=== PATIENT | female | born 1950 | race Caucasian/White ===

== ENCOUNTER 2016-11-06 08:49 | Inpatient (IN) | payer MEDICARE, OTHER ==
[2016-11-06] MEDS ORDERED: traMADol HCL 50 MG TABLET PO ONE (09:22)
--- NOTE | 2016-11-06 09:27 | ERNOTE ---
Back Pain ER HPI Date of Service: 11/06/16 Presenting Symptoms: injury/pain to back Time Seen by Provider: 11/06/16 09:20 Source: patient, EMS, EMS notes reviewed Exam Limitations: no limitations Immunizations: IMMUNIZATION HX Immunizations Up to Date Yes History of Influenza Vaccine No Hx Pneumococcal Vaccination No Allergies/Adverse Reactions: Allergies No Known Allergies Allergy (Verified 11/06/16 09:18) Home Medications: HOME MEDICATIONS Albuterol Sulfate [Albuterol Sulfate 2.5 MG/0.5ML] 1 vial IH Q4H PRN 11/25/15 [ Last Taken Unknown] Metoprolol Tartrate [Lopressor] 50 mg PO BID 11/25/15 [Last Taken Unknown] Multivitamins [Multivitamin Marcelina] 1 cap PO DAILY 11/25/15 [Last Taken Unknown] amLODIPine BESYLATE [Norvasc] 5 mg PO DAILY 11/25/15 [Last Taken Unknown] levETIRAcetam [Keppra] 500 mg PO BID 11/25/15 [Last Taken Unknown] Acetaminophen [Tylenol] 650 mg PO Q8H PRN #60 tablet 12/01/15 [Last Taken Unknown] Amox Tr/Potassium Clavulanate [Augmentin 500-125 Tablet] 500 mg PO Q12H #14 tab 12/01/15 [Last Taken Unknown] Cholecalciferol [Vitamin D] 5,000 unit PO DAILY@1200 #100 tablet 12/01/15 [Last Taken Unknown] Furosemide [Lasix] 40 mg PO MOWEFR #30 tablet 12/01/15 [Last Taken Unknown] Gabapentin [Neurontin] 300 mg PO HS #30 capsule 12/01/15 [Last Taken Unknown] Insulin Glargine,Hum.rec.anlog [Lantus] 40 units SC HS #1 vial 12/01/15 [Last Taken Unknown] Insulin Glargine,Hum.rec.anlog [Lantus] 45 units SC DAILY #1 vial 12/01/15 [ Last Taken Unknown] Insulin Lispro [Humalog] 15 units SC ACINS #1 vial 12/01/15 [Last Taken Unknown] Lactobacillus Acidophilus [Bacid] 2 cap PO TID #1 btl 12/01/15 [Last Taken Unknown] Psyllium Husk (with Sugar) [Metamucil] 1 each PO BID #1 bottle 12/01/15 [Last Taken Unknown] Sennosides [Senokot] 17.2 mg PO DAILY #100 tab 12/01/15 [Last Taken Unknown] lamoTRIgine [Lamictal] 50 mg PO DAILY #30 tablet 12/01/15 [Last Taken Unknown] Date (Duration): 10/30/16 Timing: Reports: getting worse Quality/Severity: Reports: moderate Location of pain: Reports: lower back Activities at Onset: Reports: other - sleeping on floor with grand-daughter Recent Injury?: Reports: possibly Modifying Factors - (Improves): Reports: other - tylenol helped a bit Associated Symptoms: Denies: fever/chills, sweating, nausea/vomiting, problems urinating Prior Treament: Denies: treated by physician, recently hospitalized, currently on antibiotics Review of Systems - Review of Systems Constitutional: Absent: no symptoms reported, fever, chills, diaphoresis Respiratory: Present: no symptoms reported Cardiology: Present: no symptoms reported Genitourinary: Present: no symptoms reported. Absent: frequency, pain, dysuria Musculoskeletal: Present: back pain Skin: Present: other - chronic oozing from anterior abd scars, nothing new. Absent: rash Psych: Absent: no symptoms reported - Patient's Past Medical History Patient History - Medical: Anemia, Bipolar, Diabetes Type 2 Insulin Dependent, Seizures, Other Patient History - Cardiac/Respiratory: No pertinent hx Patient History - Cancer: No Hx of Cancer Patient History - Surgical Procedures: Amputation, Cataracts, Colonoscopy, EGD, Hysterectomy, Tubal Ligation, Other LMP (females 10-50): Menopausal - Family History Mother Family History - Medical: , Diabetes Type 2 Insulin Dependent Family History - Cardiac/Respiratory: CVA/Stroke Family History - Cancer: Other - Cancer Sister Family History - Medical: History Unknown Family History - Cancer: Breast Children Family History - Medical: Diabetes Type 2 Father Family History - Medical: Family History - Cardiac/Respiratory: Coronary Heart Disease Family History - Cancer: Breast - Social History Living Situations: home Smoking Status: Never smoker Alcohol Use: none Drug Use: none Physical Exam - Physical Exam General Appearance: Present: wd/wn, alert, moderate distress Eye Exam: Normal inspection: bilateral, PERRL: bilateral Ears, Nose, Throat: Present: normal ENT inspection Neck: Present: nontender, supple Respiratory: Present: normal breath sounds, lungs clear Cardiovascular/Chest: Present: regular rate, rhythm, no murmur Back Exam: Present: decreased range of motion. Absent: CVA tenderness (R), CVA tenderness (L) Extremity Exam: Present: normal inspection, no edema Neurological Exam: Present: alert, oriented, normal mood/affect Skin Exam: Present: pallor, skin rash - chronically oozing lesions abd scars. Absent: cyanosis ED Progress - Results and Orders Patient's Lab Results:: I have reviewed the patient's lab results. - Vital Signs Patient's Vital Signs:: I have reviewed the patient's vital signs. Vital Signs: Vital Signs 11/06/16 09:12 Temperature 36.3 C L Pulse Rate 79 Respiratory 16 Rate Blood Pressure 144/60 O2 Sat by Pulse 97 Oximetry - Progress/Reassessment Chief Complaint: Back Pain Plan - Plan Plan: Admit to observation for transfusions. Discussed with Dr. IBARRA Departure Clinical Impression: Anemia, Stage III chronic kidney disease, Low back pain - Departure Disposition: [facility] Condition: Good
[2016-11-06 09:41] LABS: Mean Cell Volume 70.8 fl (78-100); Mean Corpuscular Hemoglobin 20.1 pg (27-31); Mean Corpuscular Hgb Conc 28.3 g/dl (32-36); Mean Platelet Volume 10.3 fl (6.0-9.5); Neutrophil % 82.4 % (42-75.0); Platelet Count 344 K/mm3 (150-450); Red Blood Count 3.39 M/mm3 (4.2-5.4); Red Cell Distribution Width 17.4 % (11.5-14.0); White Blood Count 12.2 K/mm3 (4.0-10.5)
[2016-11-06] MEDS ORDERED: traMADol HCL 50 MG TABLET ONE (09:44)
[2016-11-06 09:51] LABS: Hemoglobin 6.8 gm/dL (12.5-16.0)
[2016-11-06 09:55] LABS: Albumin * 2.8 gm/dl (3.4-5.0); Anion Gap 12.2 mmol/L (6.8-13.8); BUN/Creatinine Ratio 17.7 (9.0-21.6); Bilirubin, Total 0.2 mg/dL (0.0-1.1); Ca. Corrected For Albumin 9.9 mg/dL (8.4-10.2); Calcium * 9.3 mg/dL (7.9-10.9); Carbon Dioxide 25.6 mmol/L (24-32.6); Potassium 4.8 mmol/L (3.4-4.6); Total Protein 7.7 gm/dL (6.2-8.2)
[2016-11-06 11:18] LABS: Urine Appearance Clear; Urine Color Yellow
[2016-11-06 11:19] LABS: Urine Bacteria None Seen; Urine Bilirubin Negative (NEGATIVE); Urine Blood Negative /ul (NEGATIVE); Urine Ketone Negative (NEGATIVE); Urine Nitrite Negative (NEGATIVE); Urine Protein 30 mg/dL (NEGATIVE); Urine RBC None Seen /hpf (0-5); Urine Specific Gravity 1.015 SP.GR. (1.005-1.010); Urine Urobilinogen Normal (NORMAL); Urine WBC None Seen /hpf (0-5)
[2016-11-06 11:28] LABS: Iron 12 mcg/dL (35-120); Transferrin Sat. (% Sat.) 4 % (15-55)
[2016-11-06] MEDS ORDERED: POLYETHYLENE GLYCOL 17 GM PO PRN (13:19)
[2016-11-06] MEDS ORDERED: ACETAMINOPHEN 325 MG TABLET PO PRN (13:19)
[2016-11-06] MEDS ORDERED: ALBUTEROL SULFATE 2.5 MG/0.5 ML VIAL.NEB IH PRN (13:19)
[2016-11-06] MEDS ORDERED: traMADol HCL 50 MG TABLET PO PRN (13:22)
[2016-11-06] MEDS ORDERED: POLYETHYLENE GLYCOL 3350 119 GM BTL PO PRN (13:34)
[2016-11-06] MEDS: INSULIN LISPRO 100 UNITS/ML VIAL SC SCH (16:47)
[2016-11-06] MEDS: FERROUS SULFATE 325 MG TABLET PO SCH (16:47)
[2016-11-06] MEDS: METOPROLOL TARTRATE 50 MG TABLET PO SCH (16:47)
[2016-11-06] MEDS: SENNOSIDES/DOCUSATE SODIUM 1 TAB TABLET PO SCH (20:47)
[2016-11-06] MEDS: lamoTRIgine 100 MG TABLET PO SCH (20:47)
[2016-11-06] MEDS: INSULIN GLARGINE,HUM.REC.ANLOG 100 UNITS/ML VIAL SC SCH (20:49)
[2016-11-06] MEDS: traMADol HCL 50 MG TABLET PO PRN (20:55)
--- NOTE | 2016-11-06 21:31 | HP ---
<Catrachita Gonzalez - Last Filed: 11/07/16 00:25> Chief Complaint - Chief Complaint Date of Service: 11/06/16 Time of Service: 21:21 Chief Complaint: "Back Pain". Source of HPI- pt; unreliable, ER provider note, pt's EMR. History of Present Illness: Ms. Rodriguez is a 66-yr-old [facility] pt of Dr. Cuadra with a PMH of: Anemia, DM II, Epilepsy & Osteomylitis of LT foot. Pt does not seem to be a precise historian. She tells me the reason she sought medical care through the ER was because of middle back pain that has gone on for 1 week. She reports no other unusual symptoms. She denies fevers & chills. She also denies n/v, diarrhea, & SOB. She reports occasional coughing. Pt states that she was unable to reach her daughter to bring her to the hospital, and so she opted to call the EMS. Pt says that she has not been able to fill her prescription medications for 3 months as she was dropped by Medicaid insurance when she applied for Medicare. Her medical work up at the ED showed that her hemoglobin was 6.8. Pt denied noting any bloody or dark stools, hematemesis. Her hemogram also showed elevated WBC with a left shift. UA was negative for infection. Pt will be admitted under observation status for blood transfusion. - Patient's Past Medical History Patient History - Medical: Anemia, Bipolar, Diabetes Type 2 Insulin Dependent, Seizures, Other Patient History - Cardiac/Respiratory: No pertinent hx Patient History - Cancer: No Hx of Cancer Patient History - Surgical Procedures: Amputation, Cataracts, Colonoscopy, EGD, Hysterectomy, Tubal Ligation, Other LMP (females 10-50): Menopausal - Family History Mother Family History - Medical: , Diabetes Type 2 Insulin Dependent Family History - Cardiac/Respiratory: CVA/Stroke Family History - Cancer: Other - Cancer Sister Family History - Medical: History Unknown Family History - Cancer: Breast Children Family History - Medical: Diabetes Type 2 Father Family History - Medical: Family History - Cardiac/Respiratory: Coronary Heart Disease Family History - Cancer: Breast - Social History Living Situations: alone Smoking Status: Never smoker Have you smoked in the past 12 months: No Alcohol Use: none Drug Use: none - Immunizations Immunizations Up to Date: No Hx Pneumococcal Vaccination: No History of Influenza Vaccine: No Review Of Systems (GEN) - Review of Systems Generalized/Overall Review: Present: Malaise. Absent: Weakness, Chills, Fever EENTM: Absent: Blurred Vision, Double Vision, Throat Pain Respiratory: Present: Cough. Absent: Shortness of Breath Cardiac: Present: Edema. Absent: Chest Pain, Palpitations, Syncope Abdominal: Absent: Nausea, Vomiting, Hematemesis, Bright blood from rectum Genitourinary: Absent: Burning, Itching, Urgency, Frequency Musculoskeletal: Absent: Joint Pain, Back Pain, Joint Swelling Neurological: Absent: Headache, Anxiety, Tremors Skin: Present: Dryness, Other - Wound on abd. Endocrine: Present: No Symptoms Reported Misc: All systems neg except as marked Allergies/Adverse Reactions: Allergies Allergy/AdvReac Type Severity Reaction Status Date / Time No Known Allergies Allergy Verified 11/06/16 13:09 Home Medications: HOME MEDICATIONS Acetaminophen [Tylenol] 650 mg PO Q6H PRN 11/06/16 [Last Taken Unknown] Albuterol Sulfate [Albuterol Sulfate 2.5 MG/0.5ML] 1 vial IH Q4H PRN 11/06/16 [ Last Taken Unknown] Cetirizine HCl [Zyrtec] 10 mg PO HS 11/06/16 [Last Taken Unknown] Cholecalciferol [Vitamin D] 5,000 unit PO DAILY 11/06/16 [Last Taken Unknown] Gabapentin [Neurontin] 300 mg PO HS 11/06/16 [Last Taken Unknown] Insulin Glargine,Hum.rec.anlog [Lantus] 40 units SC 11/06/16 [Last Taken Unknown] Insulin Glargine,Hum.rec.anlog [Lantus] 45 units SC QA 11/06/16 [Last Taken Unknown] Insulin Lispro [Humalog] 15 units SC TIDWM 11/06/16 [Last Taken Unknown] Levetiracetam [Keppra] 500 mg PO BID 11/06/16 [Last Taken Unknown] Metoprolol Tartrate [Lopressor] 50 mg PO BIDWM 11/06/16 [Last Taken Unknown] Multivitamin [One Daily Essential] 1 each PO DAILY 11/06/16 [Last Taken Unknown] Polyethylene Glycol 3350 [Miralax] 17 gm PO DAILY PRN 11/06/16 [Last Taken Unknown] Sennosides/Docusate Sodium [Senna-Docusate Sodium Tablet] 1 each PO BID [Last Taken Unknown] Silver Sulfadiazine [Silvadene] 1 appl TP BID 11/06/16 [Last Taken Unknown] amLODIPine BESYLATE [Norvasc] 5 mg PO DAILY 11/06/16 [Last Taken Unknown] lamoTRIgine [Lamictal] 150 mg PO DAILY 11/06/16 [Last Taken Unknown] Exam - Exam Vital Signs: Vital Signs - Last Taken Temp 36.9 C 11/06/16 20:42 Pulse 68 11/06/16 20:42 Resp 16 11/06/16 20:42 BP 147/69 11/06/16 20:42 Pulse Ox 100 11/06/16 20:42 Constitutional: Present: Alert, Oriented x3, Cooperative, No distress ENT Exam: Present: normal ENT inspection, hearing grossly normal. Absent: nasal congestion, nasal drainage Eye Exam: bilateral eye: normal inspection, PERRL Neck: Present: full range of motion, supple, normal inspection Back Exam: Present: normal inspection, no CVA tenderness Respiratory: Present: lungs clear, no accessory muscle use, No wheezing Cardiovascular/Chest: Present: regular rate, rhythm, no murmur Abdomen: Present: Normal bowel sounds, soft, nontender /Rectal: Present: Exam deferred Extremity: Present: normal range of motion, non-tender, normal inspection. Absent: calf tenderness Skin Exam: Present: other - Non healing abdominal wounds with serous to serosanguinous drainage. Lymphatic: Present: no adenopathy Neurologic: Present: no motor/sensory deficits, alert, oriented x 3, dizzy/light -headedness Appearance: Present: appropriate appearance, appropriate insight, no memory impairment Eye contact: Present: cooperative, good eye contact, normal speech Thoughts: Present: normal thought pattern, no apparent hallucination Diagnostic Studies: Laboratory Results WBC 12.2 K/mm3 (4.0-10.5) H 11/06/16 09:26 RBC 3.39 M/mm3 (4.2-5.4) L 11/06/16 09:26 Hgb 6.8 gm/dL (12.5-16.0) L* D 11/06/16 09:26 Hct 24.0 % (37.0-47.0) L D 11/06/16 09:26 MCV 70.8 fl (78-100) L 11/06/16 09:26 MCH 20.1 pg (27-31) L 11/06/16 09:26 MCHC 28.3 g/dl (32-36) L 11/06/16 09:26 RDW 17.4 % (11.5-14.0) H 11/06/16 09:26 Plt Count 344 K/mm3 (150-450) 11/06/16 09:26 MPV 10.3 fl (6.0-9.5) H 11/06/16 09:26 Immature Gran % (Auto) 0.40 % (0.001-0.429) 11/06/16 09:26 Immature Gran # (Auto) 0.05 K/mm3 (0.000-0.0310) H 11/06/16 09:26 Neutrophils % 82.4 % (42-75.0) H 11/06/16 09:26 Lymphocytes % 9.8 % (20-51) L 11/06/16 09:26 Monocytes % 5.5 % (0.0-9) 11/06/16 09:26 Eosinophils % 1.8 % (0.0-3.0) 11/06/16 09:26 Basophils % 0.1 % (0.0-1.0) 11/06/16 09:26 Nucleated RBC % 0.0 k/mm3 (0-1) 11/06/16 09: Neutrophils # 10.0 K/mm3 (1.3-6.0) H 11/06/16 09:26 Lymphocytes # 1.2 k/mm3 (1.5-3.5) L 11/06/16 09:26 Monocytes # 0.7 k/mm3 (0.0-1.0) 11/06/16 09:26 Eosinophils # 0.2 k/mm3 (0.0-0.7) 11/06/16 09:26 Absolute Basophils 0.0 k/mm3 (0.0-0.1) 11/06/16 09:26 Sodium 135 mmol/L (132-142) 11/06/16 09:26 Plasma Sodium 137 mmol/L (130-142) 11/06/16 09:26 Potassium 4.8 mmol/L (3.4-4.6) H 11/06/16 09:26 Chloride 102 mmol/L (97-106) 11/06/16 09:26 Carbon Dioxide 25.6 mmol/L (24-32.6) 11/06/16 09:26 Anion Gap 12.2 mmol/L (6.8-13.8) 11/06/16 09:26 BUN 28 mg/dL (3-23) H 11/06/16 09:26 Creatinine 1.58 mg/dL (0.4-1.4) H 11/06/16 09:26 Est GFR (Non-Af Amer) 35 mL/min (60-130) L 11/06/16 09:26 BUN/Creatinine Ratio 17.7 (9.0-21.6) 11/06/16 09:26 Random Glucose 227 mg/dL (70-110) H 11/06/16 09:26 Mean Blood Glucose 247 mg/dL 11/06/16 09:26 Hemoglobin A1c 10.0 % (4.00-6.0) H 11/06/16 09:26 Calcium 9.3 mg/dL (7.9-10.9) 11/06/16 09:26 Calcium Adj for Albumin 9.9 mg/dL (8.4-10.2) 11/06/16 09:26 Iron 12 mcg/dL (35-120) L 11/06/16 09:50 TIBC 300 mcg/dL (260-445) 11/06/16 09:50 Transferrin % Sat 4 % (15-55) L 11/06/16 09:50 Ferritin 8 ng/mL (8-252) 11/06/16 09:50 Total Bilirubin 0.2 mg/dL (0.0-1.1) 11/06/16 09:26 AST 7 U/L (0-48) 11/06/16 09:26 ALT 10 U/L (19-67) L 11/06/16 09:26 Alkaline Phosphatase 131 U/L (50-170) 11/06/16 09:26 Total Protein 7.7 gm/dL (6.2-8.2) 11/06/16 09:26 Albumin 2.8 gm/dl (3.4-5.0) L 11/06/16 09:26 Urine Color Yellow 12/31/16 10:44 Urine Appearance Clear 11/06/16 10:44 Urine pH 6.0 pH (5.0-7.0) 11/06/16 10:44 Ur Specific [place] 1.015 SP.GR. (1.005-1.010) 11/06/16 10:44 Urine Protein 30 mg/dL (NEGATIVE) H 11/06/16 10:44 Urine Glucose (UA) 250 mg/dL (NEGATIVE) H 11/06/16 10:44 Urine Clinitest 2+ (100mg/dl) mg/dL (NEGATIVE) H 11/06/16 10:44 Urine Ketones Negative mg/dL (NEGATIVE) 11/06/16 10:44 Urine Blood Negative /ul (NEGATIVE) 11/06/16 10:44 Urine Nitrate Negative (NEGATIVE) 11/06/16 10:44 Urine Bilirubin Negative mg/dl (NEGATIVE) 11/06/16 10:44 Prot Sulfosalicylic Acd 2+ mg/dL (0) H 11/06/16 10:44 Urine Urobilinogen Normal EU/dl (NORMAL) 11/06/16 10:44 Ur Leukocyte Esterase Negative /ul (NEGATIVE) 11/06/16 10:44 Urine RBC None seen /hpf (0-5) 11/06/16 10:44 Urine WBC None seen /hpf (0-5) 11/06/16 10:44 Ur Epithelial Cells None seen /hpf (0-5) 11/06/16 10:44 Urine Bacteria None seen (NONE) 11/06/16 10:44 Urine Culture Comments No culture indicated 11/06/16 10:44 Blood Type O Positive 11/06/16 09:50 Antibody Screen Negative 11/06/16 09:50 Crossmatch See Detail 11/06/16 09:50 Assessment/Plan - Assessment/Plan (1) Anemia Assessment: Her MCV is 70.8 which is consistent with microcytic anemia. She has had a long standing history of anemia related to iron deficiency. Will be transfused with 2 units of PRBC. Recheck hemogram in am. Problem: Acute QualifierTitle: Anemia type: iron deficiency (2) Elevated WBCs Assessment: UA was clear of infection. Since no CXR was obtained in ER, will obtain one tonight incase of pneumonia due to report of occasional coughing and mid back pain. She also has chronic wounds on her abdomen, and even though they are non - healing, they do not seem to have any signs of infection. Will consider source of infection to be the wounds in the event that CXR does not have acute findings. Check CBC in am. Problem: Acute (3) Wound of abdomen Assessment: She is unsure why she had abdominal surgery. it appears that she had total abdominal hysterectomy and BSO in the past and abdominal lesions. 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 Even though they are non- healing, they do not show signs of infection. Monitor CBC, if no improvement, consider abdominal CT to check for any abscess. Problem: Chronic (4) Stage III chronic kidney disease Problem: Chronic (5) Diabetes mellitus Problem: Chronic (6) Epilepsy Problem: Chronic (7) HTN (hypertension) Problem: Chronic QualifierTitle: Hypertension type: essential hypertension Qualified Code( s): I10 - Essential (primary) hypertension (8) Noncompliance with medication regimen Problem: Chronic <Pascual Ramey - Last Filed: 11/07/16 21:13> Immunizations: IMMUNIZATION HX Immunizations Up to Date No History of Influenza Vaccine No Hx Pneumococcal Vaccination No Exam - Exam Vital Signs: Vital Signs - Last Taken Temp 36.7 C 11/07/16 19:05 Pulse 61 11/07/16 19:05 Resp 16 11/07/16 19:05 BP 162/74 11/07/16 19:05 Pulse Ox 91 11/07/16 19:05 Diagnostic Studies: Abnormal Lab Results 11/07/16 11/07/16 11/07/16 Range/Units 04:40 04:40 04:40 RBC 3.66 L (4.2-5.4) M/mm3 Hgb 8.0 L (12.5-16.0) gm/dL Hct 27.0 L (37.0-47.0) % MCV 73.8 L (78-100) fl MCH 21.9 L (27-31) pg MCHC 29.6 L (32-36) g/dl RDW 18.5 H (11.5-14.0) % MPV 11.0 H (6.0-9.5) fl Monocytes % 9.4 H (0.0-9) % Eosinophils % 4.4 H (0.0-3.0) % BUN 30 H (3-23) mg/dL Creatinine 1.51 H (0.4-1.4) mg/dL Est GFR (Non-Af Amer) 37 L (60-130) mL/min Random Glucose 143 H D (70-110) mg/dL B-Natriuretic Peptide 2010 H (5-325) pg/mL Microbiology 11/06/16 13:55 - Final Nares MRSA Negative Laboratory Results WBC 7.3 K/mm3 (4.0-10.5) D 11/07/16 04:40 RBC 3.66 M/mm3 (4.2-5.4) L 11/07/16 04:40 Hgb 8.0 gm/dL (12.5-16.0) L 11/07/16 04:40 Hct 27.0 % (37.0-47.0) L 11/07/16 04:40 MCV 73.8 fl (78-100) L 11/07/16 04:40 MCH 21.9 pg (27-31) L 11/07/16 04:40 MCHC 29.6 g/dl (32-36) L 11/07/16 04:40 RDW 18.5 % (11.5-14.0) H 11/07/16 04:40 Plt Count 272 K/mm3 (150-450) 11/07/16 04:40 MPV 11.0 fl (6.0-9.5) H 11/07/16 04:40 Immature Gran % (Auto) 0.30 % (0.001-0.429) 11/07/16 04:40 Immature Gran # (Auto) 0.02 K/mm3 (0.000-0.0310) 11/07/16 04:40 Neutrophils % 60.4 % (42-75.0) 11/07/16 04:40 Lymphocytes % 25.2 % (20-51) 11/07/16 04:40 Monocytes % 9.4 % (0.0-9) H 11/07/16 04:40 Eosinophils % 4.4 % (0.0-3.0) H 11/07/16 04:40 Basophils % 0.3 % (0.0-1.0) 11/07/16 04:40 Nucleated RBC % 0.0 k/mm3 (0-1) 11/07/16 04:40 Neutrophils # 4.4 K/mm3 (1.3-6.0) 11/07/16 04:40 Lymphocytes # 1.8 k/mm3 (1.5-3.5) 11/07/16 04:40 Monocytes # 0.7 k/mm3 (0.0-1.0) 11/07/16 04:40 Eosinophils # 0.3 k/mm3 (0.0-0.7) 11/07/16 04:40 Absolute Basophils 0.0 k/mm3 (0.0-0.1) 11/07/16 04:40 Sodium 135 mmol/L (132-142) 11/07/16 04:40 Plasma Sodium 136 mmol/L (130-142) 11/07/16 04:40 Potassium 4.5 mmol/L (3.4-4.6) 11/07/16 04:40 Chloride 103 mmol/L (97-106) 11/07/16 04:40 Carbon Dioxide 24.8 mmol/L (24-32.6) 11/07/16 04:40 Anion Gap 11.7 mmol/L (6.8-13.8) 11/07/16 04:40 BUN 30 mg/dL (3-23) H 11/07/16 04:40 Creatinine 1.51 mg/dL (0.4-1.4) H 11/07/16 04:40 Est GFR (Non-Af Amer) 37 mL/min (60-130) L 11/07/16 04:40 BUN/Creatinine Ratio 19.9 (9.0-21.6) 11/07/16 04:40 Random Glucose 143 mg/dL (70-110) H D 11/07/16 04:40 Mean Blood Glucose 247 mg/dL 11/06/16 09:26 Hemoglobin A1c 10.0 % (4.00-6.0) H 11/06/16 09:26 Calcium 9.2 mg/dL (7.9-10.9) 11/07/16 04:40 Calcium Adj for Albumin 9.9 mg/dL (8.4-10.2) 11/06/16 09:26 Iron 12 mcg/dL (35-120) L 11/06/16 09:50 TIBC 300 mcg/dL (260-445) 11/06/16 09:50 Transferrin % Sat 4 % (15-55) L 11/06/16 09:50 Ferritin 8 ng/mL (8-252) 11/06/16 09:50 Total Bilirubin 0.2 mg/dL (0.0-1.1) 11/06/16 09:26 AST 7 U/L (0-48) 11/06/16 09:26 ALT 10 U/L (19-67) L 11/06/16 09:26 Alkaline Phosphatase 131 U/L (50-170) 11/06/16 09:26 Troponin I 0.020 ng/ml (0.00-0.10) 11/07/16 04:40 B-Natriuretic Peptide 2010 pg/mL (5-325) H 11/07/16 04:40 Total Protein 7.7 gm/dL (6.2-8.2) 11/06/16 09:26 Albumin 2.8 gm/dl (3.4-5.0) L 11/06/16 09:26 Urine Color Yellow 11/06/16 10:44 Urine Appearance Clear 11/06/16 10:44 Urine pH 6.0 pH (5.0-7.0) 11/06/16 10:44 Ur Specific [place] 1.015 SP.GR. (1.005-1.010) 11/06/16 10:44 Urine Protein 30 mg/dL (NEGATIVE) H 11/06/16 10:44 Urine Glucose (UA) 250 mg/dL (NEGATIVE) H 11/06/16 10:44 Urine Clinitest 2+ (100mg/dl) mg/dL (NEGATIVE) H 11/06/16 10:44 Urine Ketones Negative mg/dL (NEGATIVE) 11/06/16 10:44 Urine Blood Negative /ul (NEGATIVE) 11/06/16 10:44 Urine Nitrate Negative (NEGATIVE) 11/06/16 10:44 Urine Bilirubin Negative mg/dl (NEGATIVE) 11/06/16 10:44 Prot Sulfosalicylic Acd 2+ mg/dL (0) H 11/06/16 10:44 Urine Urobilinogen Normal EU/dl (NORMAL) 11/06/16 10:44 Ur Leukocyte Esterase Negative /ul (NEGATIVE) 11/06/16 10:44 Urine RBC None seen /hpf (0-5) 11/06/16 10:44 Urine WBC None seen /hpf (0-5) 11/06/16 10:44 Ur Epithelial Cells None seen /hpf (0-5) 11/06/16 10:44 Urine Bacteria None seen (NONE) 11/06/16 10:44 Urine Culture Comments No culture indicated 11/06/16 10:44 Group A Strep Rapid Negative (NEGATIVE) 11/07/16 00:22 Blood Type O Positive 11/06/16 09:50 Antibody Screen Negative 11/06/16 09:50 Crossmatch See Detail 11/06/16 09:50 Assessment/Plan - Narrative Narrative: We had planned to transfuse and then discharge this patient, until we discovered she had pneumonia. We will culture, and treat with IV antibiotics. Estimated stay of 3 days.
[2016-11-07] MEDS ORDERED: AZITHROMYCIN 250 MG TABLET PO SCH ×2 (00:30→23:59)
[2016-11-07] MEDS: NORMAL SALINE 1,000 ML IV PRN ×2 (00:32→17:37)
[2016-11-07 05:33] LABS: Mean Cell Volume 73.8 fl (78-100); Mean Corpuscular Hemoglobin 21.9 pg (27-31); Mean Corpuscular Hgb Conc 29.6 g/dl (32-36); Neutrophil # 4.4 K/mm3 (1.3-6.0); Neutrophil % 60.4 % (42-75.0); Platelet Count 272 K/mm3 (150-450); Red Blood Count 3.66 M/mm3 (4.2-5.4); Red Cell Distribution Width 18.5 % (11.5-14.0); White Blood Count 7.3 K/mm3 (4.0-10.5)
[2016-11-07 05:42] LABS: Anion Gap 11.7 mmol/L (6.8-13.8); BUN/Creatinine Ratio 19.9 (9.0-21.6); Calcium * 9.2 mg/dL (7.9-10.9); Carbon Dioxide 24.8 mmol/L (24-32.6); Estimated Creat Clear 31.6; Potassium 4.5 mmol/L (3.4-4.6)
[2016-11-07] MEDS ORDERED: AZITHROMYCIN 250 MG TABLET PO STA (06:35)
[2016-11-07 07:00] LABS: Troponin I 0.02 ng/ml (0.00-0.10)
[2016-11-07] MEDS ORDERED: AZITHROMYCIN 250 MG TABLET PO ONE (07:30)
[2016-11-07] MEDS ORDERED: NON-FORMULARY 1 DOSE DOSE (Multivitamin [One Daily Essential] 1 EACH) PO SCH (09:00)
[2016-11-07] MEDS: lamoTRIgine 100 MG TABLET PO SCH ×2 (09:10→20:13)
[2016-11-07] MEDS: INSULIN LISPRO 100 UNITS/ML VIAL SC SCH ×3 (09:10→16:22)
[2016-11-07] MEDS: FERROUS SULFATE 325 MG TABLET PO SCH ×3 (09:10→16:22)
[2016-11-07] MEDS: INSULIN GLARGINE,HUM.REC.ANLOG 100 UNITS/ML VIAL SC SCH ×2 (09:10→20:13)
[2016-11-07] MEDS: FOLIC ACID 1 MG TABLET PO SCH (09:10)
[2016-11-07] MEDS: METOPROLOL TARTRATE 50 MG TABLET PO SCH ×2 (09:11→16:22)
[2016-11-07] MEDS: CYANOCOBALAMIN 1,000 MCG TABLET PO SCH (09:11)
[2016-11-07] MEDS: CHOLECALCIFEROL 5,000 UNIT TABLET PO SCH (09:11)
[2016-11-07] MEDS: SENNOSIDES/DOCUSATE SODIUM 1 TAB TABLET PO SCH ×2 (09:11→20:13)
[2016-11-07] MEDS: MULTIVITAMINS 1 CAP CAPSULE PO SCH (09:11)
--- NOTE | 2016-11-07 21:18 | PN ---
Subjective - Date and Time Seen Date: 11/07/16 Time: 07:05 Subjective Narrative: Feels stronger after blood . Has cough. Not productive. No chest pain. Objective - Review of Systems Generalized/Overall Review: Reports: Malaise EENTM: Reports: No Symptoms Reported Respiratory: Reports: Cough Cardiac: Reports: No Symptoms Reported Abdominal: Reports: No Symptoms Reported Genitourinary Symptoms: Reports: No Symptoms Reported Musculoskeletal Complaints: Reports: Back Pain Neurological: Reports: No Symptoms Reported Skin: Reports: No Symptoms Reported Endocrine: Reports: No Symptoms Reported Misc: All systems neg except as marked - Vitals Vitals: Last Vital Signs Selected Entries 11/07/16 06:00 Temperature 35.9 C L Temperature Axillary Source Pulse Rate 61 Respiratory 20 Rate Blood Pressure 151/75 Blood Pressure Supine Position O2 Sat by Pulse 100 Oximetry Oxygen Delivery Room Air Method - Abnormal Lab Findings Abnormal Lab Findings: Abnormal Lab Results 11/07/16 11/07/16 11/07/16 Range/Units 04:40 04:40 04:40 RBC 3.66 L (4.2-5.4) M/mm3 Hgb 8.0 L (12.5-16.0) gm/dL Hct 27.0 L (37.0-47.0) % MCV 73.8 L (78-100) fl MCH 21.9 L (27-31) pg MCHC 29.6 L (32-36) g/dl RDW 18.5 H (11.5-14.0) % MPV 11.0 H (6.0-9.5) fl Monocytes % 9.4 H (0.0-9) % Eosinophils % 4.4 H (0.0-3.0) % BUN 30 H (3-23) mg/dL Creatinine 1.51 H (0.4-1.4) mg/dL Est GFR (Non-Af Amer) 37 L (60-130) mL/min Random Glucose 143 H D (70-110) mg/dL B-Natriuretic Peptide 2010 H (5-325) pg/mL - Exam Constitutional: Present: Alert, Oriented x3, Cooperative, Well developed, Morbidly obese ENT Exam: Present: normal ENT inspection Neck: Present: normal inspection Respiratory: Present: rhonchi Cardiovascular/Chest: Present: regular rate, rhythm, no murmur Abdomen: Present: Normal bowel sounds, soft, nontender, nondistended, no rebound tenderness, no hepatospenomegaly, no masses, obese Extremity: Present: normal range of motion, lower extremity edema Skin Exam: Present: normal color, warm/dry, no cyanosis Neurologic: Present: alert, oriented x 3 Appearance: Present: appropriate appearance, neat Eye contact: Present: cooperative Assessment/Plan Plan Narrative: Follow labs. reinstitute meds. IV antibiotics. Estimated stay of 3 days. - Problems/Diagnosis (1) Pneumonia Problem: Acute Qualifiers: Pneumonia type: due to unspecified organism Laterality: right Lung location: lower lobe of lung Qualified Code(s): J18.1 - Lobar pneumonia, unspecified organism (2) Anemia Problem: Acute Qualifiers: Anemia type: iron deficiency Iron deficiency anemia type: chronic blood loss Qualified Code(s): D50.0 - Iron deficiency anemia secondary to blood loss (chronic) (3) Low back pain Problem: Chronic Qualifiers: Chronicity: chronic Back pain laterality: midline Sciatica presence: without sciatica Qualified Code(s): M54.5 - Low back pain; G89.29 - Other chronic pain (4) HTN (hypertension) Problem: Chronic Qualifiers: Hypertension type: essential hypertension Qualified Code(s): I10 - Essential (primary) hypertension (5) Stage III chronic kidney disease Problem: Chronic (6) Congestive heart failure (CHF) Problem: Chronic Qualifiers: Congestive heart failure type: unspecified congestive heart failure type Congestive heart failure chronicity: chronic Qualified Code(s): I50.9 - Heart failure, unspecified (7) CKD (chronic kidney disease) stage 4, GFR 15-29 ml/min Problem: Chronic (8) Depressed affect Problem: Chronic (9) Diabetes mellitus Problem: Chronic (10) Epilepsy Problem: Chronic Qualifiers: Epilepsy type: unspecified Intractability: not intractable Status epilepticus: without status epilepticus Qualified Code(s): G40.909 - Epilepsy , unspecified, not intractable, without status epilepticus (11) Noncompliance with medication regimen Problem: Chronic (12) Peripheral vascular disease due to secondary diabetes mellitus Problem: Chronic
[2016-11-07] MEDS: traMADol HCL 50 MG TABLET PO PRN (22:35)
[2016-11-08] MEDS: NORMAL SALINE 1,000 ML IV PRN (00:55)
[2016-11-08 05:15] LABS: Hematocrit 27.8 % (37.0-47.0); Mean Cell Volume 75.1 fl (78-100); Mean Corpuscular Hemoglobin 21.6 pg (27-31); Mean Corpuscular Hgb Conc 28.8 g/dl (32-36); Mean Platelet Volume 10.8 fl (6.0-9.5); Neutrophil # 4.7 K/mm3 (1.3-6.0); Neutrophil % 63.9 % (42-75.0); Platelet Count 264 K/mm3 (150-450); Red Cell Distribution Width 19.3 % (11.5-14.0); White Blood Count 7.4 K/mm3 (4.0-10.5)
[2016-11-08 05:38] LABS: Anion Gap 11.2 mmol/L (6.8-13.8); BUN/Creatinine Ratio 19.7 (9.0-21.6); Calcium * 9.3 mg/dL (7.9-10.9); Carbon Dioxide 24.4 mmol/L (24-32.6); Estimated Creat Clear 30.4; Potassium 4.6 mmol/L (3.4-4.6)
--- NOTE | 2016-11-08 06:48 | PN ---
Subjective - Date and Time Seen Date: 11/08/16 Time: 06:41 Subjective Narrative: Ms. Rodriguez has no new complaints this morning. Has occasional coughing but no SOB. No issues according to nursing. Objective - Vitals Vitals: Last Vital Signs Temp 36.6 C 11/08/16 06:22 Pulse 59 L 11/08/16 06:22 Resp 16 11/08/16 06:22 BP 131/66 11/08/16 06:22 Pulse Ox 94 11/08/16 06:22 - Abnormal Lab Findings Abnormal Lab Findings: Abnormal Lab Results 11/07/16 11/08/16 11/08/16 Range/Units 04:40 04:40 04:40 RBC 3.70 L (4.2-5.4) M/mm3 Hgb 8.0 L (12.5-16.0) gm/dL Hct 27.8 L (37.0-47.0) % MCV 75.1 L (78-100) fl MCH 21.6 L (27-31) pg MCHC 28.8 L (32-36) g/dl RDW 19.3 H (11.5-14.0) % MPV 10.8 H (6.0-9.5) fl Eosinophils % 4.3 H (0.0-3.0) % BUN 31 H (3-23) mg/dL Creatinine 1.57 H (0.4-1.4) mg/dL Est GFR (Non-Af Amer) 35 L (60-130) mL/min B-Natriuretic Peptide 2010 H (5-325) pg/mL - Exam Constitutional: Present: Alert, Oriented x3, No distress ENT Exam: Present: normal ENT inspection, hearing grossly normal. Absent: nasal congestion, nasal drainage Neck: Present: full range of motion, supple, normal inspection Breasts: Present: Exam deferred Respiratory: Present: lungs clear, no accessory muscle use, No wheezing Cardiovascular/Chest: Present: regular rate, rhythm, systolic murmur Abdomen: Present: Normal bowel sounds, soft, obese, other - Abd wall wounds. /Rectal: Present: Exam deferred Extremity: Present: normal range of motion, non-tender Skin Exam: Present: warm/dry - Non healing open abdominal wounds, mild serous drainage, no erythema., other Neurologic: Present: no motor/sensory deficits, alert, oriented x 3 Appearance: Present: appropriate appearance, appropriate insight Eye contact: Present: cooperative, good eye contact, normal speech Thoughts: Present: normal thought pattern, no apparent hallucination Assessment/Plan - Problems/Diagnosis (1) Pneumonia Problem: Acute Qualifiers: Pneumonia type: due to unspecified organism Laterality: right Lung location: lower lobe of lung Qualified Code(s): J18.1 - Lobar pneumonia, unspecified organism Narrative: CXR showed RLL Infiltrates. On Rocephin & Azithromycin. Blood culture pending. Plan to D/C on Tuesday. (2) Anemia Problem: Acute Qualifiers: Anemia type: iron deficiency Iron deficiency anemia type: chronic blood loss Qualified Code(s): D50.0 - Iron deficiency anemia secondary to blood loss (chronic) Narrative: Her MCV is 70.8 which is consistent with microcytic anemia. She has had a long standing history of anemia related to iron deficiency. Was transfused with 2 units of PRBC. CBC in am. (3) Wound of abdomen Problem: Chronic Narrative: She is unsure why she had abdominal surgery. it appears that she had total abdominal hysterectomy and BSO in the past and abdominal lesions. According to records on [place], pt has has chronic abdominal wall wounds for over 20 yrs since having surgery in [place]. Even though they are non- healing, they do not show signs of infection. Change dressing as needed. Monitor CBC, (4) Elevated WBCs Problem: Acute (5) Stage III chronic kidney disease Problem: Chronic Narrative: Improved with IVF- may SL today, BMP in am. (6) Diabetes mellitus Problem: Chronic (7) Epilepsy Problem: Chronic Qualifiers: Epilepsy type: unspecified Intractability: not intractable Status epilepticus: without status epilepticus Qualified Code(s): G40.909 - Epilepsy , unspecified, not intractable, without status epilepticus (8) HTN (hypertension) Problem: Chronic Qualifiers: Hypertension type: essential hypertension Qualified Code(s): I10 - Essential (primary) hypertension (9) Noncompliance with medication regimen Problem: Chronic
[2016-11-08] MEDS: AZITHROMYCIN 250 MG TABLET PO SCH (09:08)
[2016-11-08] MEDS: FERROUS SULFATE 325 MG TABLET PO SCH ×3 (09:09→16:38)
[2016-11-08] MEDS: INSULIN LISPRO 100 UNITS/ML VIAL SC SCH ×3 (09:09→16:37)
[2016-11-08] MEDS: lamoTRIgine 100 MG TABLET PO SCH ×2 (09:09→21:34)
[2016-11-08] MEDS: FOLIC ACID 1 MG TABLET PO SCH (09:09)
[2016-11-08] MEDS: INSULIN GLARGINE,HUM.REC.ANLOG 100 UNITS/ML VIAL SC SCH ×2 (09:09→21:34)
[2016-11-08] MEDS: MULTIVITAMINS 1 CAP CAPSULE PO SCH (09:10)
[2016-11-08] MEDS: CHOLECALCIFEROL 5,000 UNIT TABLET PO SCH (09:10)
[2016-11-08] MEDS: CYANOCOBALAMIN 1,000 MCG TABLET PO SCH (09:10)
[2016-11-08] MEDS: SENNOSIDES/DOCUSATE SODIUM 1 TAB TABLET PO SCH ×2 (09:10→21:33)
[2016-11-08] MEDS: METOPROLOL TARTRATE 50 MG TABLET PO SCH ×2 (09:10→16:38)
[2016-11-09] MEDS: traMADol HCL 50 MG TABLET PO PRN (04:09)
[2016-11-09 06:16] LABS: Hematocrit 30.9 % (37.0-47.0); Hemoglobin 8.8 gm/dL (12.5-16.0); Mean Cell Volume 75.9 fl (78-100); Mean Corpuscular Hemoglobin 21.6 pg (27-31); Mean Corpuscular Hgb Conc 28.5 g/dl (32-36); Neutrophil % 69.8 % (42-75.0); Platelet Count 289 K/mm3 (150-450); Red Blood Count 4.07 M/mm3 (4.2-5.4); Red Cell Distribution Width 20.2 % (11.5-14.0); White Blood Count 8.6 K/mm3 (4.0-10.5)
[2016-11-09 06:29] LABS: Anion Gap 10.8 mmol/L (6.8-13.8); BUN/Creatinine Ratio 18.9 (9.0-21.6); Calcium * 9.7 mg/dL (7.9-10.9); Carbon Dioxide 24.5 mmol/L (24-32.6); Estimated Creat Clear 30.1; Potassium 4.3 mmol/L (3.4-4.6)
[2016-11-09] MEDS: MULTIVITAMINS 1 CAP CAPSULE PO SCH (09:18)
[2016-11-09] MEDS: METOPROLOL TARTRATE 50 MG TABLET PO SCH ×2 (09:18→16:40)
[2016-11-09] MEDS: lamoTRIgine 100 MG TABLET PO SCH (09:18)
[2016-11-09] MEDS: FOLIC ACID 1 MG TABLET PO SCH (09:18)
[2016-11-09] MEDS: CYANOCOBALAMIN 1,000 MCG TABLET PO SCH (09:18)
[2016-11-09] MEDS: FERROUS SULFATE 325 MG TABLET PO SCH ×3 (09:18→16:40)
[2016-11-09] MEDS: CHOLECALCIFEROL 5,000 UNIT TABLET PO SCH (09:18)
[2016-11-09] MEDS: SENNOSIDES/DOCUSATE SODIUM 1 TAB TABLET PO SCH (09:18)
[2016-11-09] MEDS: AZITHROMYCIN 250 MG TABLET PO SCH (09:19)
[2016-11-09] MEDS ORDERED: INSULIN LISPRO 100 UNITS/ML VIAL SC ONE ×2 (10:12→18:00)
[2016-11-09] MEDS: INSULIN LISPRO 100 UNITS/ML VIAL SC SCH ×3 (10:19→17:31)
[2016-11-09] MEDS: INSULIN GLARGINE,HUM.REC.ANLOG 100 UNITS/ML VIAL SC SCH (10:20)
[2016-11-09 16:38] VITALS: BP 184/72
--- NOTE | 2016-11-09 17:23 | DS ---
(1) Anemia Problem: Acute Qualifiers: Anemia type: iron deficiency Iron deficiency anemia type: unspecified iron deficiency Qualified Code(s): D50.9 - Iron deficiency anemia, unspecified (2) Pneumonia Problem: Acute Qualifiers: Pneumonia type: due to unspecified organism Laterality: right Lung location: lower lobe of lung Qualified Code(s): J18.1 - Lobar pneumonia, unspecified organism (3) HTN (hypertension) Problem: Chronic (4) Stage III chronic kidney disease Problem: Chronic (5) Obesity Diagnosis(s): BMI-40.0 Problem: Chronic Qualifiers: Obesity type: due to excess calories Obesity severity: unspecified obesity severity Qualified Code(s): E66.09 - Other obesity due to excess calories (6) Diabetes mellitus with neuropathy Problem: Chronic Qualifiers: Diabetes mellitus type: type 2 Diabetes mellitus group home insulin use: unspecified manager intermediate insulin use status Qualified Code(s): E11.40 - Type 2 diabetes mellitus with diabetic neuropathy, unspecified Description of Stay: DOA 11/06/2016. DOD 11/09/2016. HOSPITAL COURSE: Patient is a 66-year-old WF with a history of HTN, T2 DM, HLD, CKD stage III-IV , obesity, neuropathy who came to the ER because of mid back pain for the last 1 week. CXR revealed infiltrate at Right Lung base, increased lung markings and central bronchial wall thickening. H&H was 6.8/24.0 on admission. Patient was transfused with 2 units of packed RBC. She was treated for possible pneumonia with CTX 1 g IV daily and azithromycin 250 mg PO daily. She was hemodynamically stable H&H 8.8/30.9 on 11/09/2016 when she was discharged in a stable condition. Procedures Performed: none Results and Findings: Laboratory Tests 11/06/16 11/08/16 11/09/16 09:26 04:40 06:07 WBC 12.2 H 7.4 8.6 Hgb 6.8 L* D 8.0 L 8.8 L Hct 24.0 L D 27.8 L 30.9 L Plt Count 344 264 289 11/07/16 11/08/16 11/09/16 04:40 04:40 06:07 Plasma Sodium 136 136 135 Potassium 4.5 4.6 4.3 Chloride 103 105 104 Carbon Dioxide 24.8 24.4 24.5 BUN 30 H 31 H 30 H Creatinine 1.51 H 1.57 H 1.59 H Est GFR (Non-Af Amer) 37 L 35 L 35 L Discharge Disposition: Home self care Disposition: Home self-care Condition: Undetermined Discharge Activity: Activity as tolerated Discharge Diet: Consistent carbs, Low salt, Low fat/chol, High Fiber Problem Oriented Discharge Instructions to Patient/Family: Anemia, Nonspecific Additional Patient Instructions (free text): patient to get rinbe[facility] through [facility]. Ask her to call [facility] to make prior arrangements. Appointment with Dr. Watkins in 2 weeks. Avoid all NSAIDS. - motrin, aleve , ibufrofen,large dose aspirin. can take tylenol one gram [ 1000 mg ] three times a day for pain. [ upto 3 grams a day]. Prescriptions (Any new or edited meds): Cyanocobalamin [Vitamin B-12] 1,000 mcg PO DAILY #100 tablet Complete Home Medications List: Complete Home Medication List: Acetaminophen [Tylenol] 650 mg PO Q6H PRN 11/06/16 Albuterol Sulfate [Albuterol Sulfate 2.5 MG/0.5ML] 1 vial IH Q4H PRN 11/06/16 Cetirizine HCl [Zyrtec] 10 mg PO HS 11/06/16 Gabapentin [Neurontin] 300 mg PO HS 11/06/16 Insulin Glargine,Hum.rec.anlog [Lantus] 40 units SC HS 11/06/16 Insulin Glargine,Hum.rec.anlog [Lantus] 45 units SC QAM 11/06/16 Insulin Lispro [Humalog] 15 units SC TIDWM 11/06/16 Levetiracetam [Keppra] 500 mg PO BID 11/06/16 Metoprolol Tartrate [Lopressor] 50 mg PO BIDWM 11/06/16 Multivitamin [One Daily Essential] 1 each PO DAILY 11/06/16 Polyethylene Glycol 3350 [Miralax] 17 gm PO DAILY PRN 11/06/16 Sennosides/Docusate Sodium [Senna-Docusate Sodium Tablet] 1 each PO DAILY PRN amLODIPine BESYLATE [Norvasc] 5 mg PO HS 11/06/16 lamoTRIgine [Lamictal] 150 mg PO DAILY 11/06/16 Cyanocobalamin [Vitamin B-12] 1,000 mcg PO DAILY #100 tablet 11/09/16 Cholecalciferol (Vitamin D3) [Vitamin D3] 5,000 unit PO DAILY 11/26/16 Insulin Lispro [Humalog] 15 unit SQ AC 11/26/16 Ferumoxytol [Feraheme] 510 mg IV ONCE #1 vial 11/27/16 Methylprednisolone Sod Succ/Pf [Solu-Medrol (PF)] 30 mg IV ONCE #1 vial diphenhydrAMINE HCL [Benadryl] 25 mg IV ONCE #1 ml 11/27/16
== END 2016-11-09 18:30 | disposition home or self-care (01) | DRG 194 ==
LOC: ER 08:49 → OBSVTOIN 11:14 → INTOOBSV 11:14 → UNDOADMOB 11:14 → MS 11:14 → OBSVTOIN 11-07 07:17
PROVIDERS: ADMIT Allergy & Immunology; ATTEND Internal Medicine
DX: J18.1 Lobar pneumonia, unspecified organism (principal); N18.4 Chronic kidney disease, stage 4 (severe); Z91.120 Patient's intentional underdosing of medication regimen due to financial hardship; D50.9 Iron deficiency anemia, unspecified; E11.51 Type 2 diabetes mellitus with diabetic peripheral angiopathy without gangrene; I12.9 Hypertensive chronic kidney disease with stage 1 through stage 4 chronic kidney disease, or unspecified chronic kidney disease; G40.909 Epilepsy, unspecified, not intractable, without status epilepticus; G89.29 Other chronic pain; M54.5 Low back pain; Z79.4 Long term (current) use of insulin
CPT/HCPCS: 36415; 71010; 80048; 80053; 81001; 82728; 83036; 83540; 83550; 83880; 84484; 85025; 86850; 86900; 87040; 87081; 87430; 87449; 94640; 99284; P9016

== ENCOUNTER 2017-08-21 21:56 | Emergency (ER) | payer MEDICARE, OTHER ==
[2017-08-21 23:31] LABS: Hematocrit 32.1 % (37.0-47.0); Mean Cell Volume 76.4 fl (78-100); Mean Corpuscular Hemoglobin 23.8 pg (27-31); Mean Corpuscular Hgb Conc 31.2 g/dl (32-36); Mean Platelet Volume 11.8 fl (6.0-9.5); Neutrophil # 8.8 K/mm3 (1.3-6.0); Neutrophil % 78.1 % (42-75.0); Platelet Count 303 K/mm3 (150-450); Red Cell Distribution Width 15.5 % (11.5-14.0); White Blood Count 11.3 K/mm3 (4.0-10.5)
[2017-08-21 23:50] LABS: Anion Gap 10.5 mmol/L (6.8-13.8); Calcium * 10.2 mg/dL (7.9-10.9); Carbon Dioxide 26.2 mmol/L (24-32.6); Potassium 4.7 mmol/L (3.4-4.6)
--- NOTE | 2017-08-22 00:13 | ERNOTE ---
Medical Problem HPI - Narrative Date of Service: 08/22/17 - General Chief Complaint: Diabetes Related Problem Time Seen by Provider: 08/21/17 22:55 Source: patient, family Exam Limitations: no limitations - Immun/Allergies/Home Medications Immunizations: IMMUNIZATION HX Immunizations Up to Date No History of Influenza Vaccine No Hx Pneumococcal Vaccination No Allergies/Adverse Reactions: Allergies ferumoxytol [From Feraheme] Allergy (Severe, Verified 11/26/16 14:04) Other CODED Home Medications: HOME MEDICATIONS Acetaminophen [Tylenol] 650 mg PO Q6H PRN 11/06/16 [Last Taken Unknown] Albuterol Sulfate [Albuterol Sulfate 2.5 MG/0.5ML] 1 vial IH Q4H PRN 11/06/16 [ Last Taken Unknown] Cetirizine HCl [Zyrtec] 10 mg PO HS 11/06/16 [Last Taken Unknown] Gabapentin [Neurontin] 300 mg PO HS 11/06/16 [Last Taken Unknown] Insulin Glargine,Hum.rec.anlog [Lantus] 40 units SC HS 11/06/16 [Last Taken Unknown] Insulin Glargine,Hum.rec.anlog [Lantus] 45 units SC QAM 11/06/16 [Last Taken Unknown] Insulin Lispro [Humalog] 15 units SC TIDWM 11/06/16 [Last Taken Unknown] Metoprolol Tartrate [Lopressor] 50 mg PO BIDWM 11/06/16 [Last Taken Unknown] Multivitamin [One Daily Essential] 1 each PO DAILY 11/06/16 [Last Taken Unknown] Polyethylene Glycol 3350 [Miralax] 17 gm PO DAILY PRN 11/06/16 [Last Taken Unknown] Sennosides/Docusate Sodium [Senna-Docusate Sodium Tablet] 1 each PO DAILY PRN [Last Taken Unknown] amLODIPine BESYLATE [Norvasc] 5 mg PO HS 11/06/16 [Last Taken Unknown] lamoTRIgine [Lamictal] 150 mg PO DAILY 11/06/16 [Last Taken Unknown] levETIRAcetam [Keppra] 500 mg PO BID 11/06/16 [Last Taken Unknown] Cyanocobalamin [Vitamin B-12] 1,000 mcg PO DAILY #100 tablet 11/09/16 [Last Taken Unknown] Cholecalciferol (Vitamin D3) [Vitamin D3] 5,000 unit PO DAILY 11/26/16 [Last Taken Unknown] Insulin Lispro [Humalog] 15 unit SQ AC 11/26/16 [Last Taken Unknown] Ferumoxytol [Feraheme] 510 mg IV ONCE #1 vial 11/27/16 [Last Taken Unknown] Methylprednisolone Sod Succ/Pf [Solu-Medrol (PF)] 30 mg IV ONCE #1 vial [Last Taken Unknown] diphenhydrAMINE HCL [Benadryl] 25 mg IV ONCE #1 ml 11/27/16 [Last Taken Unknown] - History of Present History Narrative: Glucose levels have been running anywhere from the 70s to the 500's since she went to her new physician one week ago. Her grand daughter has been helping her with her medications and visiting nurse recently started coming to see her. No complaints of fevers, chill, coughing or pain. Denies any dysuria or urinary frequency. This morning when it was discovered that her glucose was in the 70s she was given peanut butter and other foods to increase the glucose. There is a concern that the insulin regimen may cause significant hypoglycemia. Date (Duration): 08/21/17 Time (Timing): 06:04 Timing: intermittent Severity: mild Modifying Factors - (Improves): Present: other - none Modifying Factors - (Worsens): Present: other - none Review of Systems - Review of Systems Constitutional: Present: no symptoms reported EYE: Present: no symptoms reported ENT: Present: no symptoms reported Respiratory: Present: no symptoms reported Cardiology: Present: no symptoms reported Gastrointestinal/Abdominal: Present: no symptoms reported Genitourinary: Present: no symptoms reported Musculoskeletal: Present: no symptoms reported Skin: Present: no symptoms reported Neurological: Present: no symptoms reported Endocrine: Present: See HPI Hematologic/Lymphatic: Present: no symptoms reported Psych: Present: no symptoms reported - Patient's Past Medical History Patient History - Medical: Anemia, Bipolar, Diabetes Type 2, Diabetes Type 2 Insulin Dependent, Renal Failure, Seizures, Other Patient History - Cardiac/Respiratory: COPD, Hypertension, Hyperlipidemia Patient History - Cancer: No Hx of Cancer Patient History - Surgical Procedures: Amputation - left great toe, tubaligation , non healing wound from abdominal surgery, Cataracts, Colonoscopy, EGD, Hysterectomy, Tubal Ligation, Other Patient History - Other: None - Family History Mother Family History - Medical: , Diabetes Type 2 Insulin Dependent Family History - Cardiac/Respiratory: CVA/Stroke Family History - Cancer: No pertinent family hx Sister Family History - Medical: History Unknown Family History - Cardiac/Respiratory: No pertinent hx Family History - Cancer: Breast Children Family History - Medical: Diabetes Type 2 Father Family History - Medical: Family History - Cardiac/Respiratory: Coronary Heart Disease Family History - Cancer: History Unknown - Social History Abuse History: No History of abuse Psych History: Hx of Bipolar Disorder - Immunizations Immunizations Up to Date: No Hx Pneumococcal Vaccination: No History of Influenza Vaccine: No Physical Exam - Physical Exam General Appearance: Present: no apparent distress Head Exam: Present: normal inspection Eye Exam: Normal inspection: bilateral Ears, Nose, Throat: Present: normal ENT inspection Neck: Present: normal inspection Respiratory: Present: no respiratory distress Cardiovascular/Chest: Present: regular rate, rhythm Gastrointestinal/Abdominal: Present: nontender, nondistended Back Exam: Present: normal inspection Extremity Exam: Present: normal inspection Neurological Exam: Present: alert, oriented, normal mood/affect Skin Exam: Present: normal color ED Progress - Results and Orders Patient's Lab Results:: I have reviewed the patient's lab results. - Vital Signs Patient's Vital Signs:: I have reviewed the patient's vital signs. Vital Signs: Vital Signs 08/21/17 08/21/17 22:11 22:36 Temperature 36.4 C L Pulse Rate 92 112 H Respiratory 16 16 Rate Blood Pressure 160/85 144/78 O2 Sat by Pulse 96 99 Oximetry - Progress/Reassessment Chief Complaint: Diabetes Related Problem Progress:: Unchanged Departure Clinical Impression: Hypoglycemia - Departure Disposition: Home self-care Condition: Fair Instructions: Diabetic Neuropathy Print Language: German Additional Instructions: Decrease the Lantus AM dosage to 20 and the PM dose 20 as well. You will need to follow up with your physician on using the right dose of insulin going forward. Keep the other insulin medications the same. If you feel sick return to the ED for evaluation. Referrals: Kaylee Hernandez MD [Primary Care Provider] -
[2017-08-22 00:35] LABS: Urine Appearance Clear; Urine Bilirubin Negative (NEGATIVE); Urine Blood 5 /ul (NEGATIVE); Urine Color Yellow; Urine Ketone Negative (NEGATIVE); Urine Nitrite Negative (NEGATIVE); Urine Protein 100 mg/dL (NEGATIVE); Urine Specific Gravity >=1.030 SP.GR. (1.005-1.010); Urine Urobilinogen Normal (NORMAL)
[2017-08-22 00:36] LABS: Urine Bacteria 3+; Urine RBC 0-5 /hpf (0-5)
[2017-08-22 01:37] LABS: Urine Bilirubin Negative (NEGATIVE); Urine Ketone Negative (NEGATIVE); Urine Nitrite Negative (NEGATIVE); Urine Protein 100 mg/dL (NEGATIVE); Urine Specific Gravity >=1.030 SP.GR. (1.005-1.010); Urine Urobilinogen Normal (NORMAL)
[2017-08-22 01:48] LABS: Urine Appearance Clear; Urine Bacteria 1+; Urine Blood 5 /ul (NEGATIVE); Urine Color Yellow; Urine RBC None Seen /hpf (0-5); Urine WBC None Seen /hpf (0-5)
[2017-08-22 02:12] VITALS: BP 137/87
== END 2017-08-22 02:15 | disposition home or self-care (01) ==
LOC: ER 21:56
PROC: 0T9B7ZZ Drainage of Bladder, Via Natural or Artificial Opening (ICD-10-PCS; principal; 2017-08-21)
DX: E16.2 Hypoglycemia, unspecified (principal)